=== PATIENT | female | born 1995 | race Hispanic/Latino ===

== ENCOUNTER 2017-10-13 08:55 | Emergency (ER) | payer SELFPAY ==
[~2017-10-13] VITALS: Ht 165.1 cm; Wt 75.0 kg
[2017-10-13 09:52] LABS: INFLUENZA A NONE DETECTED (NONE DETECT); INFLUENZA B NONE DETECTED (NONE DETECT)
[2017-10-13] MEDS ORDERED: ZPAK PO (10:14)
[2017-10-13 10:43] VITALS: BP 138/80
== END 2017-10-13 10:25 | disposition home or self-care (01) | DRG 153 ==
LOC: ED 08:55
PROVIDERS: Family Medicine
DX: J06.9 Acute upper respiratory infection, unspecified (principal); R05 Cough; R50.9 Fever, unspecified; R09.89 Other specified symptoms and signs involving the circulatory and respiratory systems